=== PATIENT | female | born 1960 | race Caucasian/White ===

== ENCOUNTER 2017-10-02 21:35 | Emergency (ER) | payer OTHER ==
[~2017-10-02] VITALS: Ht 149.9 cm; Wt 80.7 kg
[2017-10-02] MEDS ORDERED: SYNTHROID50 MCG (22:38)
[2017-10-02] MEDS ORDERED: LOSARTAN-HCTZ1 EACH (22:38)
[2017-10-02] MEDS ORDERED: NAPROXEN25 GM (22:39)
[2017-10-03] MEDS ORDERED: LEVSIN/SL0.125 MG SL (02:37)
[2017-10-03] MEDS ORDERED: MECLIZINE HCL25 M1 PO (02:38)
== END 2017-10-03 03:29 | disposition home or self-care (01) ==
LOC: ER 21:35
DX: R42 Dizziness and giddiness (principal)